=== PATIENT | male | born 1965 | race Caucasian/White ===

== ENCOUNTER 2023-03-01 14:47 | Outpatient (CLI) | payer BC, SELFPAY | END 2023-03-01 14:48 | disposition home or self-care (01) | PROVIDERS: PCP Family Medicine; Visit Provider Family Medicine | DX: Z00.00 Encounter for general adult medical examination without abnormal findings (principal); R73.03 Prediabetes; I10 Essential (primary) hypertension; E66.01 Morbid (severe) obesity due to excess calories; F33.9 Major depressive disorder, recurrent, unspecified; G62.9 Polyneuropathy, unspecified; Z13.1 Encounter for screening for diabetes mellitus; Z12.5 Encounter for screening for malignant neoplasm of prostate | CPT/HCPCS: 80053; 80061; 82043; 82570; 82607; 84153; 84443 ==

== ENCOUNTER 2023-04-14 13:53 | Emergency (ER) | payer BC, SELFPAY ==
[2023-04-14 13:58] VITALS: BP 182/95; PULSE 64; RESP 18; TEMP 37.1; BMI 36.6
--- NOTE | 2023-04-14 14:08 | CRLHL7_ITS ---
For Patients: As a result of the Century Cures Act, medical imaging exams and procedure reports are released immediately into your electronic medical record. You may view this report before your referring provider. If you have questions, please contact your health care provider. INDICATION: Leg pain and swelling. TECHNIQUE: Ultrasound venous duplex lower left extremity. Compression venous exam was performed using smiley-scale, color Doppler, and spectral Doppler analysis. COMPARISON: None. FINDINGS: Deep veins: Sonographic imaging demonstrates the left common femoral, deep femoral, superficial femoral, popliteal, posterior tibial and the contralateral right common femoral veins to be fully compressible with normal color Doppler blood flow. Superficial veins: There is echogenic thrombus within a noncompressible greater saphenous vein from the mid thigh to the mid calf. No popliteal cyst. IMPRESSION: 1. No deep venous thrombosis of the left lower extremity. 2. Superficial thrombophlebitis of the left greater saphenous vein extending from the mid thigh to the mid calf. Dictated by Bryan Langston MD @ 04/14/2023 3:56:08 PM (Electronically Signed)
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
[2023-04-14] MEDS: RIVAROXABAN 10 MG TABLET 15 MG PO (15:32)
== END 2023-04-14 15:33 | disposition home or self-care (01) ==
LOC: ED 14:26
PROVIDERS: Emergency Provider Family Medicine; PCP Family Medicine
DX: R23.3 Spontaneous ecchymoses (principal); I82.812 Embolism and thrombosis of superficial veins of left lower extremity
CPT/HCPCS: 93971; 99284; A9270

== ENCOUNTER 2023-06-08 14:56 | Outpatient (CLI) | payer BC, SELFPAY ==
--- NOTE | 2023-06-08 15:00 | CRLHL7_ITS ---
For Patients: As a result of the Century Cures Act, medical imaging exams and procedure reports are released immediately into your electronic medical record. You may view this report before your referring provider. If you have questions, please contact your health care provider. INDICATION: Pain and swelling COMPARISON: 04/14/2023 TECHNIQUE: A compression venous ultrasound exam was performed of the left lower extremity using smiley-scale imaging, color Doppler and spectral Doppler analysis. FINDINGS: Sonographic imaging of the left lower extremity demonstrates normal compressibility and color Doppler venous blood flow within the common femoral vein, and deep femoral vein. Hypoechoic clot within the greater saphenous vein extending throughout the left lower extremity is present. The edge of a clot extends to 1.1 cm from the saphenofemoral junction. Within the thigh, the femoral vein is patent and compressible. At a lower level, the popliteal and posterior tibial veins also show normal compressibility and color Doppler venous blood flow. Limited imaging of the contralateral groin demonstrates a normal spectral waveform and color Doppler venous blood flow within the right common femoral vein. IMPRESSION: No evidence of deep vein thrombosis within the left lower extremity. Long segment superficial clot throughout the greater saphenous vein within the left lower extremity extending to 1.1 cm from the saphenofemoral junction. Dictated by Louie Thomson MD @ 06/08/2023 4:42:18 PM (Electronically Signed)
== END 2023-06-08 14:57 | disposition home or self-care (01) ==
LOC: US 14:58
PROVIDERS: PCP Family Medicine; Visit Provider Nurse Practitioner Family
DX: M79.89 Other specified soft tissue disorders (principal); M79.605 Pain in left leg
CPT/HCPCS: 93971

== ENCOUNTER 2024-01-13 16:17 | Outpatient (CLI) | payer BC, SELFPAY | END 2024-01-13 16:18 | disposition home or self-care (01) | PROVIDERS: PCP Family Medicine; Visit Provider Family Medicine | DX: R73.03 Prediabetes (principal) | CPT/HCPCS: 80053; 82043; 82570 ==

== ENCOUNTER 2024-03-28 15:06 | Emergency (ER) | payer BC, SELFPAY ==
[2024-03-28 15:10] VITALS: BP 168/97; PULSE 59; RESP 16; TEMP 36.7; O2SAT 95; BMI 36.6
--- NOTE | 2024-03-28 15:29 | US_ITS ---
Patient: JOSLYN ELAINE Facility:?[facility] Patient ID:?[id number] Site Patient ID:?[id number]. Site :?[id number] Study:?US-Extremity Left LEV LT-03/28/2024 4:08:28 PM Ordering Physician:?GERALD SULLIVAN M.D. Final Report: INDICATION: Leg pain and swelling. TECHNIQUE: Ultrasound venous duplex lower left extremity. Compression venous exam was performed using smiley-scale, color Doppler, and spectral Doppler analysis. COMPARISON: None. FINDINGS: Deep veins: Sonographic imaging demonstrates the left common femoral, deep femoral, superficial femoral, popliteal, posterior tibial and the contralateral right common femoral veins to be fully compressible with normal color Doppler blood flow. Superficial veins: Superficial thrombophlebitis involving the left greater saphenous vein from the mid thigh through the mid left calf (greater than 5 centimeters in length). No popliteal cyst. IMPRESSION: Superficial thrombophlebitis involving the left greater saphenous vein from the mid thigh through the mid left calf (greater than 5 centimeters in length). No left lower extremity DVT. Dictated by Lukas Davis MD @ 03/28/2024 4:16:29 PM Signed by:?Lukas Davis MD @03/28/2024 4:16:29 PM (Electronic Signature)
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
== END 2024-03-28 16:25 | disposition home or self-care (01) ==
PROVIDERS: Emergency Provider Emergency Medicine; PCP Family Medicine
DX: I80.02 Phlebitis and thrombophlebitis of superficial vessels of left lower extremity (principal)
CPT/HCPCS: 93971; 99284

== ENCOUNTER 2024-11-13 15:00 | Outpatient (CLI) | payer BC, SELFPAY ==
--- NOTE | 2024-11-13 15:00 | CRLHL7_ITS ---
For Patients: As a result of the Century Cures Act, medical imaging exams and procedure reports are released immediately into your electronic medical record. You may view this report before your referring provider. If you have questions, please contact your health care provider. INDICATION: Acute thrombosis. COMPARISON: Left lower extremity venous ultrasound 03/28/2024. TECHNIQUE: A compression venous ultrasound exam was performed of the left lower extremity using smiley-scale imaging, color Doppler, and spectral Doppler analysis. FINDINGS: Sonographic imaging of the left lower extremity demonstrates normal compressibility and color Doppler venous blood flow within the common femoral, femoral, deep femoral, and greater saphenous veins. At a lower level the popliteal, peroneal, and posterior tibial veins also show normal compressibility and color Doppler venous blood flow. Limited imaging of the contralateral groin demonstrates a normal spectral waveform and color Doppler venous blood flow within the right common femoral vein. IMPRESSION: 1. Negative for acute DVT in the left lower extremity. 2. Resolution of previously seen thrombus in the left GSV. Dictated by Natali Hamilton MD @ 11/14/2024 2:56:04 AM (Electronically Signed)
== END 2024-11-13 15:01 | disposition home or self-care (01) ==
PROVIDERS: PCP Family Medicine; Visit Provider Internal Medicine Hematology & Oncology
DX: I82.409 Acute embolism and thrombosis of unspecified deep veins of unspecified lower extremity (principal); I80.02 Phlebitis and thrombophlebitis of superficial vessels of left lower extremity
CPT/HCPCS: 93971

== ENCOUNTER 2024-12-04 15:00 | Outpatient (RCR) | payer BC, SELFPAY | END 2025-02-03 23:59 | disposition home or self-care (01) | LOC: CCIC 15:00 | PROVIDERS: PCP Family Medicine; Visit Provider Internal Medicine Hematology & Oncology | DX: I80.02 Phlebitis and thrombophlebitis of superficial vessels of left lower extremity (principal) | CPT/HCPCS: 99202; 99204; 99213; G0463 ==

== ENCOUNTER 2025-04-12 16:07 | Outpatient (CLI) | payer BC, SELFPAY | END 2025-04-12 16:08 | disposition home or self-care (01) | LOC: FRMREF 16:07 | PROVIDERS: PCP Family Medicine; Visit Provider Family Medicine | DX: R97.20 Elevated prostate specific antigen [PSA] (principal); I10 Essential (primary) hypertension; Z11.59 Encounter for screening for other viral diseases; Z12.5 Encounter for screening for malignant neoplasm of prostate | CPT/HCPCS: 80053; 80061; 82043; 82570; 86803; G0103 ==

== ENCOUNTER 2025-04-30 09:43 | Outpatient (CLI) | payer BC, SELFPAY ==
--- NOTE | 2025-04-30 11:38 | P.ANES_ITS ---
Anesthesia Charges Start Date/Time Anesthesia Start Date: 04/30/25 Anesthesia Start Time: 11:02 Stop Date/Time Anesthesia Stop Date: 04/30/25 Anesthesia Stop Time: 11:36 Coding CPT Codes CPT Codes: TAJ LWR INTST SCR COLSC - 61763 ([id number]) P2 - PATIENT W/MILD SYST DISEASE, QK - LUMBER HANDLER 2-4 CNCRNT ANES PROC, QX - VERTICAL CONTOUR BAND SAW OPERATOR SVC W/ MD MED DIRECTION
--- NOTE | 2025-04-30 11:38 | W.ANESCHARGE ---
Anesthesia Charges Start Date/Time Anesthesia Start Date: 04/30/25 Anesthesia Start Time: 11:02 Stop Date/Time Anesthesia Stop Date: 04/30/25 Anesthesia Stop Time: 11:36 Coding CPT Codes CPT Codes: TAJ LWR INTST SCR COLSC - 41205 ([id number]) P2 - PATIENT W/MILD SYST DISEASE, QK - MIXING HOUSE OPERATOR 2-4 CNCRNT ANES PROC, QX - DIRECTOR OF CORPORATE SPONSORSHIPS SVC W/ MD MED DIRECTION
--- NOTE | 2025-04-30 11:53 | P.ANES_ITS ---
Anesthesia Charges Start Date/Time Anesthesia Start Date: 04/30/25 Anesthesia Start Time: 11:02 Stop Date/Time Anesthesia Stop Date: 04/30/25 Anesthesia Stop Time: 11:36 Coding CPT Codes CPT Codes: TAJ LWR INTST SCR COLSC - 91433 ([id number]) QK - STORAGE WORKER 2-4 CNCRNT TAJ PROC, QX - IRON LAUNDER OPERATOR SVC W/ MD MED DIRECTION, P2 - PATIENT W/MILD SYST DISEASE
--- NOTE | 2025-04-30 11:53 | W.ANESCHARGE ---
Anesthesia Charges Start Date/Time Anesthesia Start Date: 04/30/25 Anesthesia Start Time: 11:02 Stop Date/Time Anesthesia Stop Date: 04/30/25 Anesthesia Stop Time: 11:36 Coding CPT Codes CPT Codes: TAJ LWR INTST SCR COLSC - 90857 ([id number]) QK - PATTERNMAKER APPRENTICE METAL 2-4 CNCRNT TAJ PROC, QX - ART GLASS SETTER SVC W/ MD MED DIRECTION, P2 - PATIENT W/MILD SYST DISEASE
== END 2025-04-30 09:44 | disposition home or self-care (01) ==
LOC: OP CLINIC 09:44
PROVIDERS: PCP Family Medicine; Visit Provider Surgery
DX: Z12.11 Encounter for screening for malignant neoplasm of colon (principal); Z86.0109 Personal history of other colon polyps; K57.30 Diverticulosis of large intestine without perforation or abscess without bleeding
CPT/HCPCS: 00812; 45378; J2704